=== PATIENT | female | born 1945 | race Caucasian/White ===

== ENCOUNTER 2018-05-13 06:32 | Day surgery (SDC) | payer MEDICARE, MEDICAID ==
[~2018-05-13] VITALS: Ht 167.6 cm; Wt 79.5 kg
[2018-05-13] VITALS (11 sets, daily range): BP systolic 134–178; BP diastolic 71–91
[~2018-05-13 06:32] MED LIST: ACET-1995 PO; ALBU8.5H8 IH; ASPI-611 PO; CARV-50 PO; CLOP75TA33 PO; DICL100G15 TOP; ENAL10TA78 PO; ISOS30TA6 PO; LORA10TA65 PO; NITR0.4T51 SL; OXYB10TA4 PO; PANT-47 PO; ROSU20TA PO; SPIIN INH; VENL150C58 PO; oxygen NS
[2018-05-13] MEDS ORDERED: normal saline 1000ml 1,000 ML IV SCH (07:00)
[2018-05-13] MEDS ORDERED: BUDE10.2 INH (07:04)
[2018-05-13] MEDS ORDERED: DOCU-28 PO (07:04)
[2018-05-13 07:23] LABS: INR 1.1 INR; PARTIAL THROMBOPLASTIN TIME 27 SECONDS (22-32)
[2018-05-13 07:32] LABS: BASOPHILS % (AUTO) 0.4 % (0-1); EOSINOPHILS # (AUTO) 0.2 X10'3 (0-0.9); HEMATOCRIT 34.3 % (35.0-45.0); HEMOGLOBIN 11.6 g/dl (12.0-16.0); MEAN CORPUSCULAR HEMOGLOBIN 29.9 PG (27.0-31.0); MEAN CORPUSCULAR HGB CONC 33.7 % (33.0-36.5); MEAN CORPUSCULAR VOLUME 88.8 FL (78-98); MEAN PLATELET VOLUME 8.6 FL (7.4-10.4); MONOCYTES # (AUTO) 0.7 X10'3 (0-0.9); NEUTROPHILS # (AUTO) 3.7 X10'3 (1.8-7.7); NEUTROPHILS % (AUTO) 55.6 % (42-75); PLATELET COUNT 205 X10'3 (140-440); RED BLOOD COUNT 3.87 X10'6 (4.20-5.60); RED CELL DISTRIBUTION WIDTH 14.1 % (11.5-14.5); WHITE BLOOD COUNT 6.6 X10'3 (4.5-11.0)
[2018-05-13 07:46] LABS: ALBUMIN 3.4 G/DL (3.4-5.0); ANION GAP 11 (8-16); BLOOD UREA NITROGEN 34 MG/DL (7-18); BUN/CREATININE RATIO 26.8 (6.6-38.0); CALCIUM 9.5 MG/DL (8.5-10.1); CHLORIDE 106 MMOL/L (99-107); CREATININE 1.27 MG/DL (0.40-0.90); GLUCOSE 107 MG/DL (70-104); MAGNESIUM 1.7 MG/DL (1.5-2.4); POTASSIUM 4.6 MMOL/L (3.5-5.1); SODIUM 140 MMOL/L (135-145); TOTAL CARBON DIOXIDE 22.8 MMOL/L (24-32); eGFR 41 ML/MIN
[2018-05-13] MEDS ORDERED: LIDOcaine 1% 30ml preserv. free vial ONE (07:47)
[2018-05-13] MEDS ORDERED: iohexol 350MG/ML 100ml bottle IV ONE (07:48)
[2018-05-13] MEDS ORDERED: midazolam 2 mg/2 ml injection ONE (07:48)
[2018-05-13] MEDS ORDERED: fentaNYL/PF 50MCG/1 ML 2ML syringe ONE (07:48)
[2018-05-13] MEDS ORDERED: iohexol 350 MG/ML 50ML vial IV ONE ×2 (07:48→08:27)
[2018-05-13] MEDS ORDERED: adenosine 90 MG/30ml kit =/or below 120kg Cath Lab IV ONE (08:39)
[2018-05-13] MEDS ORDERED: iohexol 350 MG/1 ML 200ml bottle ONE (08:42)
== END 2018-05-13 12:30 | disposition home or self-care (01) ==
LOC: SSTAY O 06:32
PROVIDERS: ATTEND Internal Medicine Cardiovascular Disease
DX: I25.810 Atherosclerosis of coronary artery bypass graft(s) without angina pectoris (principal); I10 Essential (primary) hypertension; E78.5 Hyperlipidemia, unspecified; I49.8 Other specified cardiac arrhythmias; J44.9 Chronic obstructive pulmonary disease, unspecified; G47.33 Obstructive sleep apnea (adult) (pediatric); F32.9 Major depressive disorder, single episode, unspecified; F41.9 Anxiety disorder, unspecified; K21.9 Gastro-esophageal reflux disease without esophagitis; Z90.711 Acquired absence of uterus with remaining cervical stump; Z86.79 Personal history of other diseases of the circulatory system; Z95.1 Presence of aortocoronary bypass graft; Z95.2 Presence of prosthetic heart valve; Z87.891 Personal history of nicotine dependence; Z90.89 Acquired absence of other organs; Z95.5 Presence of coronary angioplasty implant and graft; Z79.891 Long term (current) use of opiate analgesic; Z79.82 Long term (current) use of aspirin; Z88.2 Allergy status to sulfonamides; Z86.73 Personal history of transient ischemic attack (TIA), and cerebral infarction without residual deficits; Z79.899 Other long term (current) drug therapy; Z88.8 Allergy status to other drugs, medicaments and biological substances; Z98.890 Other specified postprocedural states
CPT/HCPCS: 36415; 75630; 80048; 83735; 85025; 85610; 85730; 93005; 93455; 93567; 93571; 99152; 99153; A6257; C1760; C1769; C1894; J0153; J1644; J2250; J3010; J3490; J7030; Q9967; A4620